=== PATIENT | female | born 1950 | race Hispanic/Latino ===

== ENCOUNTER → 2017-07-23 | Outpatient (CLI) | payer BC ==
[~2017-07-23] MED LIST: IOPAMIDOL-370 75 ML VIAL IV ONE
== END | disposition home or self-care (01) ==
LOC: RAH 08:50
PROVIDERS: ATTEND Nurse Practitioner Family
DX: K57.30 Diverticulosis of large intestine without perforation or abscess without bleeding (principal)
CPT/HCPCS: 74178; Q9967

== ENCOUNTER 2020-08-07 10:54 | Inpatient (IN) | payer BC, MEDICARE ==
[~2020-08-07] VITALS: Ht 147.3 cm; Wt 53.3 kg
[2020-08-07] MEDS ORDERED: ONDANSETRON 4MG INJ ONE (11:09)
[2020-08-07 11:34] LABS: ALBUMIN 4.3 g/dL (3.5-5.0); BILIRUBIN,TOTAL 0.6 mg/dL (0.2-1.0); POTASSIUM 4.2 mmol/L (3.5-5.1); TOTAL PROTEIN, SERUM 8.9 g/dL (6.0-8.3)
[2020-08-07 11:46] LABS: BASOPHILS % (AUTO) 0.3 % (0.0-5.0); EOSINOPHILS % (AUTO) 0.3 % (0.0-8.0); HEMATOCRIT 44.6 % (36-48); LYMPHOCYTES % (AUTO) 3.1 % (21.0-51.0); MEAN CORPUSCULAR HEMOGLOBIN 31.1 pg (27.0-33.0); MEAN CORPUSCULAR HGB CONC 34.3 g/dL (32.0-36.0); MEAN CORPUSCULAR VOLUME 90.7 fL (79-99); MONOCYTES % (AUTO) 3.3 % (3.0-13.0); NEUTROPHILS % (AUTO) 92.5 % (40.0-77.0); PLATELET COUNT (AUTO) 267 K/uL (130-400); RED BLOOD CELL COUNT(AUTO) 4.92 MIL/uL (4.00-5.50); RED CELL DISTRIBUTION WIDTH 12.7 % (11.0-15.5); WHITE BLOOD COUNT (AUTO) 19.3 K/uL (4.8-10.8)
[2020-08-07 12:49] LABS: APPEARANCE,URINE Clear (CLEAR); BILIRUBIN,URINE Negative (NEGATIVE); COLOR,URINE Yellow (YELLOW); GLUCOSE, URINE (UA) Negative (NEGATIVE); KETONES,URINE Trace mg/dL (NEGATIVE); LEUKOCYTE ESTERASE ,URINE Small (NEGATIVE); NITRATE,URINE Negative (NEGATIVE); OCCULT BLOOD,URINE Negative (NEGATIVE); PROTEIN,URINE Trace mg/dL (NEGATIVE); UROBILINOGEN,URINE 0.2 mg/dL (0.2-1.0)
[2020-08-07 13:08] LABS: BACTERIA,URINE Moderate /HPF (None Seen)
[2020-08-07] MEDS ORDERED: ZOSYN 3.375GM+NS 50ML 50 ML IV ONE ×2 (13:11→19:22)
[2020-08-07] MEDS ORDERED: 0.9%NACL 1000ML 1,000 ML IV ONE (13:12)
[2020-08-07 13:13] LABS: RBC,URINE None Seen /HPF (0-1)
[2020-08-07] MEDS ORDERED: IOHEXOL 350 MG/ML 100ML INFUS..BTL IV ONE (13:15)
[2020-08-07] MEDS ORDERED: 0.9%NACL 50ML 50 ML IV ONE (13:19)
[2020-08-07 16:30] VITALS: BP 143/66
[2020-08-07] MEDS ORDERED: LOSA100T58 PO (16:57)
[2020-08-07] MEDS ORDERED: OMEP40CA21 PO (16:57)
[2020-08-07] MEDS ORDERED: HYDR12.54 PO (16:57)
[2020-08-07] MEDS: LACTATED RINGERS 1000ML 1,000 ML IV SCH (17:00)
[2020-08-07] MEDS ORDERED: ACETAMINOPHEN 650 MG SUPPOSITORY RC PRN (19:40)
[2020-08-07] MEDS ORDERED: ACETAMINOPHEN 650 MG SUPPOSITORY RC ONE (19:44)
[2020-08-07] MEDS: ZOSYN 3.375GM+NS 50ML 50 ML IV SCH (19:47)
[2020-08-07 20:00] VITALS: BP 115/60
[2020-08-08] VITALS: BP 102/54
[2020-08-08] MEDS: LACTATED RINGERS 1000ML 1,000 ML IV SCH ×2 (02:01→13:15)
[2020-08-08 04:00] VITALS: BP 100/45
[2020-08-08] MEDS: ZOSYN 3.375GM+NS 50ML 50 ML IV SCH ×3 (04:21→19:28)
[2020-08-08 06:04] LABS: HEMATOCRIT 34.8 % (36-48); MEAN CORPUSCULAR HEMOGLOBIN 30.2 pg (27.0-33.0); MEAN CORPUSCULAR HGB CONC 32.5 g/dL (32.0-36.0); PLATELET COUNT (AUTO) 195 K/uL (130-400); RED BLOOD CELL COUNT(AUTO) 3.74 MIL/uL (4.00-5.50); RED CELL DISTRIBUTION WIDTH 13.3 % (11.0-15.5); WHITE BLOOD COUNT (AUTO) 6.7 K/uL (4.8-10.8)
[2020-08-08 06:14] LABS: CREATININE 0.9 mg/dL (0.5-1.5); POTASSIUM 3.7 mmol/L (3.5-5.1)
[2020-08-08 07:07] VITALS: BP 102/44
[2020-08-08 08:35] LABS: BAND NEUTROPHILS % (MANUAL) 1 % (0-2); EOSINOPHILS % (MANUAL) 1 % (1-6); LYMPHOCYTES % (MANUAL) 14 % (22-44); MAN.DIFF COMMENT-IMPRESSION MANUAL DIFFERENTIAL; MONOCYTES % (MANUAL) 3 % (2-9); REACTIVE LYMPHOCYTES 1 % (0-0); SEGMENTED NEUTROPHILS % 80 % (40-70)
[2020-08-08 08:36] LABS: PLATELET MORPHOLOGY COMMENT ADEQUATE
[2020-08-08 14:04] VITALS: BP 119/85
[2020-08-08 16:45] VITALS: BP 129/44
[2020-08-08 20:00] VITALS: BP 125/63
[2020-08-08 21:12] LABS: HEMATOCRIT 32.7 % (36-48)
[2020-08-09] VITALS (7 sets, daily range): BP systolic 113–152; BP diastolic 55–74
[2020-08-09] MEDS ORDERED: ACETAMINOPHEN 325 MG TAB ONE (01:25)
[2020-08-09] MEDS: LACTATED RINGERS 1000ML 1,000 ML IV SCH ×2 (01:28→07:48)
[2020-08-09] MEDS: ZOSYN 3.375GM+NS 50ML 50 ML IV SCH ×2 (03:32→13:11)
[2020-08-09 03:41] LABS: BASOPHILS % (AUTO) 0.5 % (0.0-5.0); EOSINOPHILS % (AUTO) 3.7 % (0.0-8.0); HEMATOCRIT 30.8 % (36-48); LYMPHOCYTES % (AUTO) 20.5 % (21.0-51.0); MEAN CORPUSCULAR HGB CONC 33.4 g/dL (32.0-36.0); MEAN CORPUSCULAR VOLUME 92.8 fL (79-99); PLATELET COUNT (AUTO) 170 K/uL (130-400); RED BLOOD CELL COUNT(AUTO) 3.32 MIL/uL (4.00-5.50); RED CELL DISTRIBUTION WIDTH 13.2 % (11.0-15.5)
[2020-08-09 04:04] LABS: ALBUMIN 2.6 g/dL (3.5-5.0); BILIRUBIN,TOTAL 0.3 mg/dL (0.2-1.0); CREATININE 0.9 mg/dL (0.5-1.5); POTASSIUM 3.5 mmol/L (3.5-5.1); TOTAL PROTEIN, SERUM 5.7 g/dL (6.0-8.3)
[2020-08-09] MEDS ORDERED: FAMOTIDINE 20MG VIAL IV SCH (12:25)
[2020-08-09] MEDS ORDERED: FAMOTIDINE 20MG VIAL IV ONE (12:26)
[2020-08-09 13:24] LABS: CREATINE KINASE, TOTAL 47 U/L (21-232); MYOGLOBIN 38 ng/mL (10-92); TROPONIN I < 0.04 ng/mL (0.00-0.06)
[2020-08-09] MEDS ORDERED: LOSARTAN 100 MG TABLET PO SCH (15:05)
[2020-08-09] MEDS ORDERED: HYDROCHLOROTHIAZIDE 25 MG TABLET PO SCH (15:05)
[2020-08-09] MEDS: ACETAMINOPHEN 325 MG TAB PO PRN (15:07)
[2020-08-09] MEDS ORDERED: LOPERAMIDE HCL 2 MG CAP PO SCH (18:15)
[2020-08-09 18:35] LABS: CREATINE KINASE, TOTAL 46 U/L (21-232); MYOGLOBIN 34 ng/mL (10-92); TROPONIN I < 0.04 ng/mL (0.00-0.06)
[2020-08-09] MEDS: LACTOBACILLUS RHAMNOSUS GG 1 EACH CAP.SPRINK PO SCH (20:38)
[2020-08-10 01:15] LABS: CREATINE KINASE, TOTAL 45 U/L (21-232); MYOGLOBIN 33 ng/mL (10-92); TROPONIN I < 0.04 ng/mL (0.00-0.06)
[2020-08-10] MEDS: ACETAMINOPHEN 325 MG TAB PO PRN (03:54)
[2020-08-10 04:01] VITALS: BP 128/58
[2020-08-10 05:04] LABS: BASOPHILS % (AUTO) 0.3 % (0.0-5.0); EOSINOPHILS % (AUTO) 2.8 % (0.0-8.0); HEMATOCRIT 30.6 % (36-48); MEAN CORPUSCULAR HEMOGLOBIN 30.3 pg (27.0-33.0); MEAN CORPUSCULAR VOLUME 91.9 fL (79-99); MONOCYTES % (AUTO) 12.1 % (3.0-13.0); NEUTROPHILS % (AUTO) 60.5 % (40.0-77.0); PLATELET COUNT (AUTO) 189 K/uL (130-400); RED BLOOD CELL COUNT(AUTO) 3.33 MIL/uL (4.00-5.50); RED CELL DISTRIBUTION WIDTH 12.5 % (11.0-15.5)
[2020-08-10 05:19] LABS: % IRON SATURATION 11.7 % (22-44)
[2020-08-10 05:33] LABS: ALBUMIN 2.7 g/dL (3.5-5.0); BILIRUBIN,TOTAL 0.5 mg/dL (0.2-1.0); CREATININE 0.8 mg/dL (0.5-1.5); POTASSIUM 3.2 mmol/L (3.5-5.1); THYROID STIMULATING HORMONE 1.32 uIU/mL (0.36-3.74); TOTAL PROTEIN, SERUM 5.9 g/dL (6.0-8.3)
[2020-08-10 07:00] VITALS: BP 128/52
[2020-08-10] MEDS ORDERED: LOSARTAN 100 MG TABLET PO SCH (09:00)
[2020-08-10] MEDS ORDERED: NON-FORMULARY MEDICATION 1 EACH (Hydrochlorothiazide 12.5 MG) PO SCH (09:00)
[2020-08-10] MEDS ORDERED: PANTOPRAZOLE 40 MG/VIAL IVP SCH (09:00)
[2020-08-10] MEDS ORDERED: HYDROCHLOROTHIAZIDE 25 MG TABLET PO SCH (09:00)
[2020-08-10] MEDS: LACTOBACILLUS RHAMNOSUS GG 1 EACH CAP.SPRINK PO SCH (09:49)
[2020-08-10] MEDS ORDERED: KCL 20 MEQ ERTAB PO SCH (10:55)
[2020-08-10 11:30] VITALS: BP 121/60
[2020-08-10] MEDS ORDERED: IRON SUCROSE COMPLEX 300 MG in 0.9% NACL 250ML 250 ML IV SCH (13:00)
[2020-08-10 16:00] VITALS: BP 149/67
== END 2020-08-10 18:17 | disposition home or self-care (01) | DRG 392 ==
LOC: EDH 10:54 → EDHIP 14:50 → 4AH 16:35
PROVIDERS: ADMIT Internal Medicine; ATTEND Internal Medicine
DX: K52.9 Noninfective gastroenteritis and colitis, unspecified (principal); R19.7 Diarrhea, unspecified; E87.6 Hypokalemia; K21.9 Gastro-esophageal reflux disease without esophagitis; I10 Essential (primary) hypertension; K57.90 Diverticulosis of intestine, part unspecified, without perforation or abscess without bleeding; Z80.8 Family history of malignant neoplasm of other organs or systems; Z83.3 Family history of diabetes mellitus; Z82.49 Family history of ischemic heart disease and other diseases of the circulatory system; Z83.79 Family history of other diseases of the digestive system; Z86.19 Personal history of other infectious and parasitic diseases; D64.9 Anemia, unspecified
CPT/HCPCS: 36415; 74018; 74177; 80048; 80053; 81001; 82150; 82270; 82550; 83540; 83550; 83605; 83690; 83874; 84145; 84443; 84484; 85014; 85018; 85025; 86140; 87040; 87088; 87324; 93005; C9113; G0378; J1756; J2405; J2543; J3490; J7030; J7050; J7120; Q9967

== ENCOUNTER 2022-09-19 14:52 | Emergency (ER) | payer MEDICARE ==
[~2022-09-19] VITALS: Ht 147.3 cm; Wt 50.3 kg
[~2022-09-19 14:52] MED LIST changes: -IOPAMIDOL-370 75 ML VIAL IV ONE; +LOSA100T59 PO; +OMEP40CA21 PO
[2022-09-19 16:32] LABS: HEMATOCRIT 41.7 % (36-48); MEAN CORPUSCULAR HGB CONC 32.6 g/dL (32.0-36.0); MEAN CORPUSCULAR VOLUME 92.1 fL (79-99); RED BLOOD CELL COUNT(AUTO) 4.53 MIL/uL (4.00-5.50); WHITE BLOOD COUNT (AUTO) 8.9 K/uL (4.8-10.8)
[2022-09-19 16:43] LABS: APPEARANCE,URINE CLEAR (CLEAR); BILIRUBIN,URINE NEGATIVE (NEGATIVE); COLOR,URINE COLORLESS (YELLOW); GLUCOSE, URINE (UA) NEGATIVE (NEGATIVE); KETONES,URINE NEGATIVE (NEGATIVE); LEUKOCYTE ESTERASE ,URINE NEGATIVE Leu/uL (NEGATIVE); NITRATE,URINE NEGATIVE (NEGATIVE); OCCULT BLOOD,URINE NEGATIVE (NEGATIVE); PROTEIN,URINE NEGATIVE (NEGATIVE); UROBILINOGEN,URINE 0.2 mg/dL (0.2-1.0)
[2022-09-19 16:44] LABS: CREATININE 0.9 mg/dL (0.5-1.5); POTASSIUM 3.7 mmol/L (3.5-5.1)
[2022-09-19 16:49] LABS: ALBUMIN 4.2 g/dL (3.5-5.0)
[2022-09-19 17:46] VITALS: BP 128/61
[2022-09-19] MEDS ORDERED: LORAZEPAM 2 MG/ML 1 ML VIAL IVP ONE (18:00)
== END 2022-09-19 18:50 | disposition home or self-care (01) ==
LOC: EDH 14:52
DX: F41.9 Anxiety disorder, unspecified (principal); I10 Essential (primary) hypertension; E78.00 Pure hypercholesterolemia, unspecified; Z79.899 Other long term (current) drug therapy
CPT/HCPCS: 99284; 96374; 84484; 80053; 85027; 81003; 36415; 93005; J2060

== ENCOUNTER 2022-09-21 04:44 | Emergency (ER) | payer MEDICARE ==
[~2022-09-21] VITALS: Ht 147.3 cm; Wt 52.7 kg
[2022-09-21 04:59] VITALS: BP 130/64
[2022-09-21] MEDS ORDERED: HYDR-3422 PO (05:12)
[2022-09-21] MEDS ORDERED: HYDROXYZINE 25 MG TABLET PO ONE (05:30)
== END 2022-09-21 05:26 | disposition home or self-care (01) ==
LOC: EDH 04:44
DX: F41.9 Anxiety disorder, unspecified (principal); E78.00 Pure hypercholesterolemia, unspecified; I10 Essential (primary) hypertension; Z79.899 Other long term (current) drug therapy

== ENCOUNTER → 2024-01-04 | Outpatient (CLI) | payer MEDICARE ==
[~2024-01-04] MED LIST changes: +HYDR-3422 PO; +IOHEXOL 350 MG/ML 100ML INFUS..BTL IV ONE
== END | disposition home or self-care (01) ==
LOC: DAH 07:51 → RAH 07:51 → DAH 08:57
PROVIDERS: ATTEND Nurse Practitioner Family
DX: K57.30 Diverticulosis of large intestine without perforation or abscess without bleeding (principal); R10.9 Unspecified abdominal pain; R10.2 Pelvic and perineal pain
CPT/HCPCS: 74178; Q9967